=== PATIENT | male | born 1990 | race Caucasian/White ===

== ENCOUNTER 2023-05-22 20:57 | Emergency (ER) | payer OTHER, SELFPAY ==
[2023-05-22 20:59] VITALS: BP 164/92; PULSE 102; RESP 16; TEMP 36.5; O2SAT 99; BMI 28.1
--- NOTE | 2023-05-22 21:35 | ED.VIS.DENTA ---
HPI History of Present Illness Chief Complaint: Dental Informant: patient Onset/Context/Timing Onset: Days (4 days) Narrative Narrative: Patient presents secondary right lower dental pain. He states several months ago he had problems with his tooth and it did well with antibiotics. About 4 days ago it worsened again. He tried an online physician who prescribed him Zithromax as he has an allergy to penicillin. He states and spite of 2 days of antibiotics his swelling and pain have worsened. He states he has been taking a lot of Tylenol and ibuprofen the last couple days to help control his pain. [facility] Medical History Bipolar disorder Spleen laceration Squamous cell carcinoma Home Medications clindamycin HCl 150 mg capsule 300 mg (2 x 150 mg) PO 4X/DAY #80 CAPSULES 05/22/23 [Rx Last Taken Unknown] ziprasidone HCl 60 mg capsule (Geodon) 60 mg PO DAILY 05/22/23 [History Last Taken Unknown] Allergy/AdvReac Type Severity Reaction Status Date / Time amoxicillin Allergy Anaphylaxis Verified 05/22/23 20:58 Penicillins Allergy Anaphylaxis Verified 05/22/23 20:58 Social History Smoking Status: Current every day smoker tobacco type: e-cigarettes ROS ROS ED Constitutional Constitutional ED: Denies chills or fever(s) Eyes Eyes: Denies discharge from eye(s) ENT ENT ED: Reports other Details: Left lower dental pain. ; Denies discharge from eye(s), rhinorrhea or sore throat Cardiovascular Cardiovascular: Denies chest pain or palpitations Respiratory/Chest Respiratory/Chest: Denies cough or dyspnea Gastrointestinal Gastrointestinal: Denies abdominal pain, nausea or vomiting Musculoskeletal Musculoskeletal: Reports neck pain; Denies back pain or extremity pain Integumentary Denies Abrasions or rash Neurologic Neurologic: Denies headache(s) or weakness Psychiatric Psychiatric: Denies anxiety or depression Allergic/Immunologic Allergic/Immunologic ED: Denies lip swelling or urticaria EXAM Physical Exam Const Vital Signs: 05/22/23 20:59 Temperature 97.7 F L Temperature Source Temporal Pulse Rate 102 H Respiratory Rate 16 Blood Pressure 164/92 H Blood Pressure Mean 116 Pulse Ox 99 Positive well nourished and well developed General Appearance ED: well developed HEENT HEENT Narrative: Mild edema along the right mandible. No overlying skin changes. The right first mandibular molar is broken with mild surrounding gum edema. No evidence of Ludewig's angina. Mild cervical lymphadenopathy noted right greater than left. Eyes EOMs intact bilaterally Chest Wall inspection of chest normal and palpation of chest normal Resp normal respiratory effort and clear to auscultation bilaterally Cardio regular rate and regular rhythm GI non-tender Palpation: soft Extremity normal to inspection Neuro oriented x3 and moves all extremities Psych mental status grossly normal MDM MDM MDM Narrative Medical decision making narrative: Patient will be given a single dose of oxycodone here for pain and will continue his Tylenol and ibuprofen at appropriate dosing at home. I will switch his antibiotic to clindamycin. Dental referral list given. Discharge Plan Triage Chief Complaint: Dental ED Provider: Giovana Ibarra Dx/Rx/DC Orders Clinical Impression: Abscess, dental Instructions: ED Dental Abscess Prescriptions: New clindamycin HCl 150 mg capsule 300 mg PO 4X/DAY Qty: 80 0RF No Action ziprasidone HCl [Geodon] 60 mg capsule 60 mg PO DAILY Rx Instructions: give with food (meal/snack) Primary Care Provider: Care Physician,No Primary Referrals: NOT,DEFINED [Non-Staff] - Activity Restrictions/Additional Instructions: Dental list provided. Disposition Disposition: Home, Self Care Discharge Date/Time: 05/22/23 21:57
[2023-05-22] MEDS: oxyCODONE 5 MG Tablet PO (21:39)
[2023-05-22] MEDS: Clindamycin HCl 150 MG Capsule 300 MG PO (21:39)
== END 2023-05-22 21:57 | disposition home or self-care (01) ==
LOC: ED 21:56
PROVIDERS: Emergency Provider Emergency Medicine; Visit Provider Emergency Medicine
DX: K04.7 Periapical abscess without sinus (principal); Z85.828 Personal history of other malignant neoplasm of skin; F17.290 Nicotine dependence, other tobacco product, uncomplicated
CPT/HCPCS: 99283

== ENCOUNTER → 2023-11-05 | Outpatient (CLI) | payer OTHER, SELFPAY ==
[2023-11-05 10:54] LABS: Hematocrit 45.4 % (40-54); Hemoglobin 15.4 g/dL (13.0-16.5); Mean Corp Hgb Conc 33.9 g/dL (32-36); Mean Corpuscular Hgb 27.7 pg (27.0-32.0); Mean Corpuscular Volume 81.8 fL (80-94); Mean Platelet Vol. 9.1 fl (6.2-12.0); Platelet Count 332 K/mm3 (150-450); RBC Distribution Width CV 12.1 % (11.6-14.6); Red Blood Count 5.55 M/mm3 (4.6-6.2)
[2023-11-05 11:23] LABS: ALB/GLOB Ratio 1.4 RATIO (0.9-2.4); AST(SGOT) 15 U/L (15-37); Alanine Aminotransfer ALT/SGPT 23 U/L (16-61); Alkaline Phosphatase 70 U/L (45-117); Anion Gap 5 (5-15); BUN 12 mg/dL (7-18); BUN/Creat Ratio 13.6 RATIO (10-20); Calcium,Total 8.9 mg/dL (8.5-10.1); Chloride 106 mmol/L (98-107); Creatinine, Serum 0.88 mg/dL (0.70-1.30); EST Glomerular Filtration Rate 107 mL/min (>60); Est Glom Filt Rate - Afr Amer 129 mL/min (>60); Ferritin 121 ng/mL (26-388); Globulin 2.9 g/dL (2.2-4.2); Glucose 89 mg/dL (74-106); Iron 136 ug/dL (65-175); Iron Binding Capacity,Total 288 ug/dL (250-450); Protein, Total 6.9 g/dL (6.4-8.2); Sodium Level 139 mmol/L (136-145); Thyroid Stim Hormone (TSH) 2.16 uIU/mL (0.358-3.74)
[2023-11-07 09:03] LABS: Vitamin B12 321 pg/mL (211-911); Vitamin D,25 Hydroxy 20.2 ng/mL
== END | disposition home or self-care (01) ==
PROVIDERS: Referring Provider Physician Assistant; Visit Provider Physician Assistant
DX: F31.62 Bipolar disorder, current episode mixed, moderate (principal); R53.83 Other fatigue; R68.82 Decreased libido; Z79.899 Other long term (current) drug therapy
CPT/HCPCS: 36415; 80053; 82306; 82607; 82728; 82746; 83540; 83550; 84403; 84443; 85027

== ENCOUNTER → 2023-12-27 | Outpatient (CLI) | payer OTHER, SELFPAY ==
--- NOTE | 2023-12-27 13:10 | EKG12_ITS ---
Test Reason : [employer]ERA Blood Pressure : / mmHG Vent. Rate : 073 BPM Atrial Rate : 073 BPM P-R Int : 142 ms QRS Dur : 082 ms QT Int : 380 ms P-R-T Axes : 049 032 043 degrees QTc Int : 418 ms Normal sinus rhythm Normal ECG Confirmed by Yair Rene ([id number]), editor house organ JOYCE KLINE ([id number]) on 12/28/2023 5:53:59 AM Referred By: Umm Perry Confirmed By:Yair Rene
== END | disposition home or self-care (01) ==
PROVIDERS: Referring Provider Physician Assistant; Visit Provider Physician Assistant
DX: Z79.899 Other long term (current) drug therapy (principal)
CPT/HCPCS: 93005